=== PATIENT | female | born 1965 | race African-American/Black ===

== ENCOUNTER 2018-05-28 11:20 | Day surgery (SDC) | payer MEDICARE ==
[~2018-05-28] VITALS: Ht 172.7 cm; Wt 145.9 kg
--- NOTE | ~2018-05-28 | OP ---
PATIENT NAME: AFSHAN MCCARTNEY MEDICAL RECORD: [id number] :67 LOCATION:[facility] ADMISSION DATE: SURGEON: NATACHA ARZOLA MD DATE OF OPERATION: 05/28/2018 PROCEDURES: 1. Colonoscopy with cold biopsy of a large 4-cm mass in the proximal ascending colon. 2. Colonoscopy with snare polypectomy of a pedunculated 2.5-cm polyp in the mid ascending colon. SCOPE: [employer] video colonoscope. MEDICATIONS: Per TIVA anesthesia. The patient received 300 mg of propofol for this procedure, O2 at 4 liters. INDICATION FOR THE PROCEDURE: Screening colonoscopy. FINDINGS: Informed consent was given. The patient was made comfortable with the above medications. After reaching an adequate level of sedation by slow IV push, the patient was placed on her left side. The rectal exam revealed good sphincter tone. No fissures or fistulas were appreciated. No external skin tags were seen. The colonoscope was advanced to the cecum, where ileocecal valve and appendiceal orifice were identified. On withdrawal of the scope, mucosa was carefully inspected. The patient was noted to have a mass in the proximal ascending colon of approximately 4 cm in size and this will be removed most likely with a right hemicolectomy. Additionally, she had a large 2.5-cm pedunculated polyp in the mid ascending colon and this was successfully removed with a snare. On further withdrawal of the scope, the patient was noted to have very mild left-sided diverticulosis without diverticulitis. In the rectal vault, minimal internal hemorrhoids were appreciated. The patient did very well during this procedure. IMPRESSION: 1. A 4-cm mass in the proximal ascending colon. Cold biopsy forceps were used to obtain tissue for pathological review. 2. A 2.5-cm pedunculated polyp in the mid ascending colon, removed with a snare. 3. Very mild left-sided diverticulosis without diverticulitis. 4. Very mild internal hemorrhoids. PLAN: 1. No aspirin and no anti-inflammatory drugs for 14 days. 2. High-fiber diet. 3. Return to clinic on a p.r.n. basis. 4. We will recommend a surgeon for the patient and this clinic visit will occur after the path has been received, which should be later this week. TRANSINT:[id number] Voice Confirmation ID: [id number] DOCUMENT ID: [id number] OPERATIVE REPORT [id number] AFSHAN MCCARTNEY BRENDA MD CC: ENEDINA TRISTAN [id number] DICTATION DATE: 05/28/18 1454 APPLICATION INTERNSHIP: 05/28/18 1607 [facility] [place] [id number] [place] [id number]
[2018-05-28 12:01] LABS: HEMATOCRIT 35.1 % (36.0-48.0); HEMOGLOBIN 11.3 g/dL (12-16); MCH 30.1 pg (26.0-34.0); MCHC 32.2 g/dL (31.0-37.0); MCV 93.6 fL (80.0-100.0); MEAN PLATELET VOLUME 10.7 fL (7.4-10.4); RBC 3.75 10x6/uL (4.00-5.40); RDW 13.8 % (11.5-14.5); WBC 8.6 10x3/uL (4.8-10.8)
[2018-05-28] MEDS ORDERED: COZAAR50 MG PO (12:14)
[2018-05-28] MEDS ORDERED: OMEPRAZOLE20 M1 PO (12:14)
[2018-05-28] MEDS ORDERED: LEVOTHYROXINE175 MCG PO (12:15)
[2018-05-28 12:28] VITALS: BP 140/78; Ht 172.7 cm; Wt 145.9 kg
== END 2018-05-28 15:45 | disposition home or self-care (01) ==
LOC: D.OPS 11:20
PROVIDERS: Anesthesiology
DX: Z12.11 Encounter for screening for malignant neoplasm of colon (principal); D12.2 Benign neoplasm of ascending colon; K57.30 Diverticulosis of large intestine without perforation or abscess without bleeding; K64.8 Other hemorrhoids; Z01.812 Encounter for preprocedural laboratory examination

== ENCOUNTER 2018-08-14 07:45 | Inpatient (IN) | payer OTHER ==
[~2018-08-14] VITALS: Ht 172.7 cm; Wt 151.5 kg
[~2018-08-14 07:45] MED LIST: COZAAR50 MG PO; FLAGYL500 MG PO; LEVOTHYROXINE175 MCG PO; NEOMYCIN SULFA500 MG PO; OMEPRAZOLE20 M1 PO
[2018-08-14 09:20] VITALS: Ht 172.7 cm; Wt 151.5 kg
[2018-08-14 09:41] LABS: HCG SERUM NEGATIVE (NEGATIVE)
[2018-08-14 12:04] LABS: BASOPHILS 0.9 % (0-2); EOSINOPHILS 3.7 % (0-7); HEMATOCRIT 32.1 % (36.0-48.0); HEMOGLOBIN 10.5 g/dL (12-16); LYMPHOCYTES 40.8 % (15-50); MCH 28.7 pg (26.0-34.0); MCHC 32.7 g/dL (31.0-37.0); MCV 87.7 fL (80.0-100.0); MEAN PLATELET VOLUME 10.8 fL (7.4-10.4); MONOCYTES 7.9 % (2-11); NEUTROPHILS 46.7 % (40-80); PLATELET COUNT 276 10x3/uL (130-400); RBC 3.66 10x6/uL (4.00-5.40); RDW 13.1 % (11.5-14.5); WBC 5.7 10x3/uL (4.8-10.8)
[2018-08-14 12:16] LABS: INR 1.12 (0.85-1.17); PROTIME 13.9 SECONDS (11.6-15.0)
--- NOTE | 2018-08-14 16:01 | NUR ---
1530-DR MEDINA HERE TO SEE PATIENT. SURGERY CX AND RESCHEDULED FOR FRIDAY. 1540-IV D/C. 1545-D/C HOME WITH FAMILY. INSTRUCTED TO RETURN FRIDAY AT 0800 FOR SURGERY AT 1000.
== END 2018-08-14 16:07 | disposition home or self-care (01) | DRG 395 ==
LOC: D.SDCHOLD 07:45
PROVIDERS: Anesthesiology; ADMIT Surgery
DX: K63.89 Other specified diseases of intestine (principal); Z53.9 Procedure and treatment not carried out, unspecified reason; I10 Essential (primary) hypertension

== ENCOUNTER 2018-08-17 08:21 | Inpatient (IN) | payer OTHER ==
[~2018-08-17] VITALS: Ht 172.7 cm; Wt 147.4 kg
[2018-08-17 10:08] VITALS: BP 148/84; BMI 49.0
[2018-08-17 14:49] VITALS: BP 126/97
[2018-08-17 16:00] VITALS: BP 171/71
[2018-08-17 17:31] VITALS: BMI 49.5
--- NOTE | 2018-08-17 19:13 | OP ---
PATIENT NAME: AFSHAN MCCARTNEY MEDICAL RECORD: [id number] :67 LOCATION:[id number] ADMISSION DATE:08/17/18 SURGEON: CIRO MEDINA MD DATE OF OPERATION: 08/17/2018 PREOPERATIVE DIAGNOSIS: Right colon mass. POSTOPERATIVE DIAGNOSIS: Right colon mass. PROCEDURE: Hand-assisted laparoscopic surgery - right hemicolectomy. SURGEON: Ciro Medina MD CONVENIENCE STORE MANAGER: Nicky Schwarz APN BLOOD LOSS: 50 cc. ANESTHESIA: General. COMPLICATIONS: None. The patient was originally scheduled for Friday. Due to the late hour and a challenging operative schedule the patient had to be canceled and rescheduled for today. I have reviewed the endoscopic photos prior to the operative procedure. OPERATIVE COURSE: The patient was conveyed to the operating room electively on 08/17/2018. General anesthesia was induced by anesthesia staff. The abdomen was sterilely prepped and draped. A small skin betty was accomplished in the left upper quadrant. A Veress needle was inserted through the skin betty into the peritoneal cavity. CO2 insufflation was begun. Once a sufficient pneumoperitoneum had been achieved, a 5-mm trocar was inserted through an incision in the epigastrium. Under direct internal vision utilizing a television camera, a 5-mm trocar was inserted through an incision at the umbilicus. Another 5-mm trocar was inserted through an incision in the midline in the suprapubic area. During insertion of the Veress needle and all trocars, there appeared to have been no injury to the bowels, any intraperitoneal or retroperitoneal structures. I took the laparoscopic EnSeal device and taking down the retroperitoneal attachments at the hepatic flexure. I then incised along the right white line of Toldt. I folded the right colon medially. I chose an area for insertion of the GelPort. This was fci between the anterior superior iliac spine and the right costal margin. A transverse incision was accomplished. Sharp dissection was carried down through the skin and subcutaneous tissues. I incised the external oblique aponeurosis and muscle along the direction of its fibers. I then incised the internal oblique muscle along the direction of its fibers. The peritoneal cavity was entered sharply. An Tj retractor was then placed. On top of the Tj retractor, a GelPort was placed. Through the Gelport and utilizing my hand, some additional blunt dissection was performed laterally to mobilize the colon. I then took the top off the GelPort. I swept down some of the retroperitoneal attachments laterally. I swept down the duodenum. I swept down the ureter, OPERATIVE REPORT [id number] AFSHAN MCCARTNEY which was protected throughout its course. I was then able to exteriorize the right colon. I stapled across the end of the ileum with a KARLIE-75 stapler. I then stapled across the proximal transverse colon with a KARLIE-75 stapler. The interpose mesentery was then sealed and divided utilizing the open Super Jaw EnSeal device. The ileum and the colon were then placed in apposition [id number] and I sutured the antimesenteric borders together with multiple interrupted 3-0 Vicryl sutures. A small enterotomy and small colotomy were accomplished. I then advanced KARLIE-75 Anvils and fired them. The resulting intracolonic defect was closed with single firing of the TA-60 stapler. The mesenteric rent was closed with a running #1 Vicryl. I irrigated the right upper quadrant and aspirated. There was no bleeding. The peritoneum, transverse abdominis muscle and internal oblique muscle was then closed with a running #1 Vicryl. The external oblique aponeurosis and muscle was closed with running #1 Vicryl. The adipose tissue was closed with interrupted 3-0 Vicryls. The skin in the right upper quadrant was closed with a running intracuticular 4-0 Vicryl. The skin at the umbilicus was closed with interrupted 4-0 Vicryl Rapide sutures. The other skin incisions were closed with interrupted intracuticular 4-0 Vicryls. Benzoin and Steri-Strips were applied. The patient was then extubated and conveyed to post-anesthesia care unit where she was in stable condition. TRANSINT:[id number] Voice Confirmation ID: [id number] DOCUMENT ID: [id number] CIRO MEDINA MD at 1913 CC: Blair ARZOLA SHAWN [id number] DICTATION DATE: 08/17/18 1346 ORDER BUILDER LOADER: 08/17/18 1449 ADM IN [facility] [address] [place] [address]
[2018-08-17 21:05] VITALS: BP 107/63
[2018-08-18 00:01] VITALS: BP 103/60
[2018-08-18 04:52] VITALS: BP 92/50
[2018-08-18 08:00] VITALS: BP 100/52
--- NOTE | 2018-08-18 10:25 | NUR ---
PATIENT HAS NO CO PAIN. CO WANTING SOMETHING OTHER THAN ICE CHIPS TO EAT. AT BEDSIDE. NO NEEDS AT THIS TIME
--- NOTE | 2018-08-18 10:46 | NUR ---
concerned about right leg swelling. good cap refill and pedal pulses easily palpable. no further needs at this time
[2018-08-18 11:01] VITALS: Ht 172.7 cm; Wt 147.4 kg
[2018-08-18 12:30] VITALS: BP 94/42
[2018-08-18 16:00] VITALS: BP 95/45
[2018-08-18 21:29] VITALS: BP 116/56
[2018-08-19 06:15] VITALS: BP 136/76
[2018-08-19 09:13] VITALS: BP 127/80
--- NOTE | 2018-08-19 09:15 | NUR ---
PT SITTING UP IN BED WITH SPOUSE AT BEDSIDE, PER CUBA GOMEZ DC EPIDURAL AND ADMINISTER PRN PAIN MEDS, PT IS READY TO BE UP WITH PHYSICAL THERAPY. DIET HAS BEEN CHANGED, PT DUFFY TO BE DC, PT ASKED TO DC AFTER UP WITH PT. NO OTHER NEEDS VOICED CONTINUE WITH PLAN OF CARE
[2018-08-19 13:18] LABS: CEA 0.9 ng/mL (0.0-4.7)
--- NOTE | 2018-08-19 14:43 | NUR ---
CODI PT TATI PT STATED PAIN SIS TILL PRETTY HIGH, DILAUDID GIVEN AT 1300, ADVISED PT SHE HAS BREAKTHROUGH PAIN MEDICATION WELL. CONTINUE WITH P[PUNEET OF CARE
[2018-08-19 15:16] VITALS: BP 149/86
[2018-08-19 17:52] VITALS: BP 105/56
--- NOTE | 2018-08-19 20:00 | NUR ---
RESTING IN BED RESP UNLABORED REPORTS PAIN TO ABD INCISIONS WILL MEDICATE ORDERED CALL LUIS CARLOS GERMAIN REACH AT BEDSIDE
[2018-08-19 22:20] VITALS: BP 108/64
[2018-08-20] VITALS (7 sets, daily range): BP systolic 114–157; BP diastolic 61–89
--- NOTE | 2018-08-20 10:28 | MORECARE ---
CASE MANAGEMENT DISCHARGE SUMMARY PATIENT: AFSHAN MCCARTNEY UNIT: [id number] ADM DATE: 08/17/18 AGE: 53 : 67 SEX: F ROOM/BED: D.2206 AUTHOR: JES AMES PHYSICIAN: REFERRING PHYSICIAN: CIRO MEDINA MD DATE OF SERVICE: 08/20/18 Discharge Plan Patient Name: AFSHAN MCCARTNEY [facility] [facility] 1965 Planned Disposition: Home Anticipated Discharge Date: Discharge Date: Expected LOS: Initial Reviewer: [email or web address] Initial Review Date: 08/17/2018 Generated: 08/20/18 11:27 am DCPIA - Discharge Planning Initial Assessment Updated by [email or web address]: Thuy Valdes on 08/20/18 10:27 am * Is the patient Alert and Oriented? Yes * How many steps to enter\exit or inside your home? * PCP Cristiano * Pharmacy [facility] * Preadmission Environment Home with Family * ADLs Independent * Equipment Bedside Commode Shower Chair * List name and contact numbers for known caregivers / representatives who currently or will assist patient after discharge: Hero () [phone] * Verbal permission to speak to the caregivers and representatives has been obtained from the patient. Yes * Community resources currently utilized None * Additional services required to return to the preadmission environment? No * Can the patient safely return to the preadmission environment? Yes * Has this patient been hospitalized within the prior 30 days at any hospital? No Patient Name: AFSHAN MCCARTNEY Page [phone] at 1028 All edits/amendments must be made on the electronic document DICTATION DATE: 08/20/18 1027 DIGESTER COOK: LULU 08/20/18 1027 RPT#: [id number] DC DATE: STATUS: ADM IN [facility] [address] [place] [address] END OF REPORT
--- NOTE | 2018-08-20 10:37 | MORECARE ---
CASE MANAGEMENT DISCHARGE SUMMARY PATIENT: AFSHAN MCCARTNEY UNIT: [id number] ADM DATE: 08/17/18 AGE: 53 : 67 SEX: F ROOM/BED: D.2206 AUTHOR: JES AMES PHYSICIAN: REFERRING PHYSICIAN: CIRO MEDINA MD DATE OF SERVICE: 08/20/18 Discharge Plan Patient Name: AFSHAN MCCARTNEY Facility: [facility]:[place] : 1965 Planned Disposition: Home Anticipated Discharge Date: Discharge Date: Expected LOS: Initial Reviewer: [email or web address] Initial Review Date: 08/17/2018 Generated: 08/20/18 11:36 am Comments DCP- Discharge Planning Updated by [email or web address]: Thuy Valdes on 08/20/18 9:[address] Patient Name: AFSHAN MCCARTNEY Admission Status: Elective Accout number: [id number] Admission Date: 08-17-2018 : 1965 Admission Diagnosis:OTHER SPECIFIED DISEASES OF INTESTINE Attending: CIRO MEDINA Current LOS: 3 Anticipated DC Date: Planned Disposition: Home Primary Insurance: [employer] PPO Discharge Planning Comments: CM met with patient to assess discharge planning needs. Patient lives independently at home where she plans to return at discharge. Her will be the one to drive her home. She stated that she has a bedside commode and shower chair at home. She states her home is safe and she does not use or need home health at this time. CM will continue to follow and assist with DC planning as needed Operations Manager Assistant: Thuy Valdes DCPIA - Discharge Planning Initial Assessment Updated by [email or web address]: Thuy Valdes on 08/20/18 10:27 am * Is the patient Alert and Oriented? Yes * How many steps to enter\exit or inside your home? * PCP Cristiano * Pharmacy [facility] * Preadmission Environment Home with Family * ADLs Independent * Equipment Bedside Commode Shower Chair * List name and contact numbers for known caregivers / representatives who currently or will assist patient after discharge: Hero () [phone] * Verbal permission to speak to the caregivers and representatives has been obtained from the patient. Yes * Community resources currently utilized None * Additional services required to return to the preadmission environment? No * Can the patient safely return to the preadmission environment? Yes * Has this patient been hospitalized within the prior 30 days at any hospital? No Last DP export: 08/20/18 9:28 am Patient Name: AFSHAN MCCARTNEY Page [phone] at 1037 All edits/amendments must be made on the electronic document DICTATION DATE: 08/20/18 1036 EMERGENCY MEDCL EMT: LULU 08/20/18 1036 RPT#: [id number] DC DATE: STATUS: ADM IN [facility] [address] [place] [address] END OF REPORT
--- NOTE | 2018-08-20 10:51 | NUR ---
NUTRITION F//U CHART REVIEWED, PT VISIT. PT REPORTS SHE IS TOLERATING SMALL AMT FULL LIQUID DIET. INFORMED PT THAT DIET IS "ADVANCE TOLERATED." WILL CONTINUE TO MONITOR DIET ADVANCEMENT, PO INTAKE. RD FOLLOWING
[2018-08-20] MEDS ORDERED: HYDROCODON-ACE1 EA10 PO (16:57)
--- NOTE | 2018-08-20 20:00 | NUR ---
ALERT SITTING UP IN BED REPORTS PAIN CONTROLED AT THIS TIME, ABD INCISIONS X 2 INTACT WITH STERISTRIPS DENIES ANY NEEDS OR CONCERNS, CALL LIGHT IN REACH
[2018-08-21 03:38] VITALS: BP 125/87
--- NOTE | 2018-08-21 08:13 | NUR ---
AWAKE AND ALERT. ORIENTED X3. NO C/O AT THIS TIME. LUNGS ARE CLEAR BIALTERALLY, OCCASSIONALLY PRODUCTIVE COUGH REPORTED. SKIN IS INTACT WITHOUT REDNESS EXCEPT SMALL INSERTION SITES TO ABDOMEN WHICH ARE CLEAN AND DRY. SL TO RIGHT WRIST IS PATENT WITHOUT REDNESS AT INSERTION SITE. AT BEDSIDE. DENIES NEEDS.
[2018-08-21 08:34] VITALS: BP 111/64; BP 135/74
--- NOTE | 2018-08-21 09:20 | NUR ---
C/O SLIGHT NAUSEA AFTER MEAL. GIVEN 4MG ZOFRAN SLOW IVP FOR SAME. WILL MONITOR.
--- NOTE | 2018-08-21 09:55 | NUR ---
REQUESTED AND GIVEN 4MG DILAUDID PO FOR C/O ABDOMINAL PAIN LEVEL 8 PRIOR TO DISCHARGE HOME. DISCHARGE INSTRUCTIONS GIVEN BOTH VERBALLY AND WRITTEN. ALL QUESTIONS ANSWERED. PATIENT AND VERBALIZED UNDERSTANDING OF SAME. NEEDED PRESCRIPTIONS GIVEN TO PATIENT YESTERDAY. SL TO RIGHT THUMB D/C WITH CATHETER INTACT. ALL BELONGINGS WITH PATIENT.
--- NOTE | 2018-08-21 16:55 | MORECARE ---
CASE MANAGEMENT DISCHARGE SUMMARY PATIENT: AFSHAN MCCARTNEY UNIT: [id number] ADM DATE: 08/17/18 AGE: 53 : 67 SEX: F ROOM/BED: D.2206 AUTHOR: JES AMES PHYSICIAN: REFERRING PHYSICIAN: CIRO MEDINA MD DATE OF SERVICE: 08/21/18 Discharge Plan Patient Name: AFSHAN MCCARTNEY Facility: [facility]:[place] : 1965 Planned Disposition: Home Anticipated Discharge Date: Discharge Date: 08/21/2018 Expected LOS: 0 Initial Reviewer: [email or web address] Initial Review Date: 08/17/2018 Generated: 08/21/18 5:55 pm Comments DCP- Discharge Planning Updated by [email or web address]: Thuy Valdes on 08/20/18 9:[address] Patient Name: AFSHAN MCCARTNEY Admission Status: Elective Accout number: [id number] Admission Date: 08-17-2018 : 1965 Admission Diagnosis:OTHER SPECIFIED DISEASES OF INTESTINE Attending: CIRO MEDINA Current LOS: 3 Anticipated DC Date: Planned Disposition: Home Primary Insurance: [employer] PPO Discharge Planning Comments: CM met with patient to assess discharge planning needs. Patient lives independently at home where she plans to return at discharge. Her will be the one to drive her home. She stated that she has a bedside commode and shower chair at home. She states her home is safe and she does not use or need home health at this time. CM will continue to follow and assist with DC planning as needed Entertainment Production Professional: Thuy Valdes DCPIA - Discharge Planning Initial Assessment Updated by [email or web address]: Thuy Valdes on 08/20/18 10:27 am * Is the patient Alert and Oriented? Yes * How many steps to enter\exit or inside your home? * PCP Cristiano * Pharmacy [facility] * Preadmission Environment Home with Family * ADLs Independent * Equipment Bedside Commode Shower Chair * List name and contact numbers for known caregivers / representatives who currently or will assist patient after discharge: Hero () [phone] * Verbal permission to speak to the caregivers and representatives has been obtained from the patient. Yes * Community resources currently utilized None * Additional services required to return to the preadmission environment? No * Can the patient safely return to the preadmission environment? Yes * Has this patient been hospitalized within the prior 30 days at any hospital? No Last DP export: 08/20/18 9:37 am Patient Name: AFSHAN MCCARTNEY Page [phone] at 1655 All edits/amendments must be made on the electronic document DICTATION DATE: 08/21/181654 FOOD SERVICE DRIVER: LULU 08/21/181654 RPT#: [id number] DC DATE:08/21/18 STATUS: DIS IN [facility] [address] [place] [address] END OF REPORT
== END 2018-08-21 10:31 | disposition home or self-care (01) | DRG 330 ==
LOC: D.SDCHOLD 08:21 → D.MS 08:35
PROVIDERS: ADMIT Surgery
PROC: 0DTF0ZZ Resection of Right Large Intestine, Open Approach (ICD-10-PCS; principal; 2018-08-17 10:00)
DX: K63.89 Other specified diseases of intestine (principal); Z68.43 Body mass index [BMI] 50.0-59.9, adult; I10 Essential (primary) hypertension; E66.9 Obesity, unspecified; K21.9 Gastro-esophageal reflux disease without esophagitis; Z86.010 Personal history of colon polyps

== ENCOUNTER → 2018-10-28 14:49 | Outpatient (CLI) | payer OTHER ==
[2018-08-18 11:01] VITALS: BMI 49.4
[~2018-10-28 14:49] MED LIST changes: +HYDROCODON-ACE1 EA10 PO
== END | disposition home or self-care (01) ==
LOC: D.CT 14:49
PROVIDERS: ATTEND Nurse Practitioner Family
DX: Z09 Encounter for follow-up examination after completed treatment for conditions other than malignant neoplasm (principal)